=== PATIENT | female | born 1960 | race Caucasian/White ===

== ENCOUNTER 2024-11-02 06:14 | Day surgery (SDC) | payer OTHER, SELFPAY | END 2024-11-02 11:55 | disposition home or self-care (01) | LOC: GI 06:14 | PROVIDERS: ATTENDING PHYSICIAN Surgery | DX: Z12.11 Encounter for screening for malignant neoplasm of colon (principal) | CPT/HCPCS: G0121 ==

== ENCOUNTER → 2024-12-15 13:24 | Outpatient (REF) | payer OTHER, SELFPAY | LOC: HWRAD 13:24 | PROVIDERS: ATTENDING PHYSICIAN Internal Medicine Geriatric Medicine | DX: E78.2 Mixed hyperlipidemia (principal) | CPT/HCPCS: 75571 ==

== ENCOUNTER → 2024-12-16 13:28 | Outpatient (REF) | payer OTHER, SELFPAY | LOC: RCS 13:28 | PROVIDERS: ATTENDING PHYSICIAN Internal Medicine Geriatric Medicine | DX: E78.2 Mixed hyperlipidemia (principal); M54.50 Low back pain, unspecified; M76.30 Iliotibial band syndrome, unspecified leg; M62.89 Other specified disorders of muscle; E55.9 Vitamin D deficiency, unspecified; Z13.89 Encounter for screening for other disorder; R00.2 Palpitations; E78.01 Familial hypercholesterolemia | CPT/HCPCS: 93017; 93350 ==

== ENCOUNTER 2025-01-31 06:19 | Day surgery (SDC) | payer OTHER, SELFPAY | END 2025-01-31 14:26 | disposition home or self-care (01) | LOC: GI 06:19 | PROVIDERS: ATTENDING PHYSICIAN Internal Medicine Gastroenterology | DX: R12 Heartburn (principal); R93.3 Abnormal findings on diagnostic imaging of other parts of digestive tract; K22.89 Other specified disease of esophagus; K44.9 Diaphragmatic hernia without obstruction or gangrene; K31.A14 Gastric intestinal metaplasia without dysplasia, involving the cardia | CPT/HCPCS: 43239; 88305 ==

== ENCOUNTER → 2025-02-09 13:24 | Outpatient (REF) | payer OTHER, SELFPAY | LOC: RAD 13:24 | PROVIDERS: ATTENDING PHYSICIAN Internal Medicine Gastroenterology; FAMILY PHYSICIAN Internal Medicine Geriatric Medicine | DX: K46.9 Unspecified abdominal hernia without obstruction or gangrene (principal) | CPT/HCPCS: 74246 ==

== ENCOUNTER → 2025-02-14 09:52 | Outpatient (REF) | payer OTHER, SELFPAY | LOC: RAD 09:52 | PROVIDERS: ATTENDING PHYSICIAN Internal Medicine Geriatric Medicine | DX: E78.2 Mixed hyperlipidemia (principal); M76.30 Iliotibial band syndrome, unspecified leg; Z96.641 Presence of right artificial hip joint; R00.2 Palpitations; I25.10 Atherosclerotic heart disease of native coronary artery without angina pectoris; E55.9 Vitamin D deficiency, unspecified | CPT/HCPCS: 75574; Q9967 ==